=== PATIENT | male | born 1985 | race Caucasian/White ===

== ENCOUNTER 2018-06-25 13:34 | Emergency (ER) | payer MEDICAID ==
[~2018-06-25] VITALS: Ht 185.4 cm; Wt 97.5 kg
[2018-06-25 13:40] VITALS: BP 146/96
--- NOTE | 2018-06-25 13:41 | NUR ---
PT AMBULATED TO BED 2
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
--- NOTE | 2018-06-25 13:55 | NUR ---
PT TAKEN TO X-RAY ON WHEELCHAIR IN STABLE CONDITION
[2018-06-25] MEDS ORDERED: KETOROLAC 60 MG/2 ML VIAL IM ONE (15:45)
[2018-06-25 16:13] VITALS: BP 141/85
== END 2018-06-25 16:13 | disposition home or self-care (01) ==
LOC: MED 13:34
DX: S20.211A Contusion of right front wall of thorax, initial encounter (principal); X58.XXXA Exposure to other specified factors, initial encounter; Y93.89 Activity, other specified; Y92.89 Other specified places as the place of occurrence of the external cause; Y99.8 Other external cause status
CPT/HCPCS: 71101; 99284

== ENCOUNTER 2019-09-03 19:07 | Inpatient (IN) | payer MEDICAID ==
[~2019-09-03] VITALS: Ht 185.4 cm; Wt 113.4 kg
[2019-09-03 19:22] VITALS: BP 155/79
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
--- NOTE | 2019-09-03 19:43 | NUR ---
Dr. Maradiaga examining patient.
[2019-09-03] MEDS ORDERED: NACL 0.9% 3,500 ML IV ONE (19:49)
[2019-09-03] MEDS ORDERED: MORPHINE SULFATE 4 MG/ML SYR IVP ONE ×2 (19:50→20:50)
[2019-09-03] MEDS ORDERED: ONDANSETRON 4 MG/2 ML VIAL IVP ONE (19:50)
--- NOTE | 2019-09-03 19:57 | NUR ---
X-Ray at bedside.
--- NOTE | 2019-09-03 20:19 | NUR ---
ULTRASOUND AT BEDSIDE
--- NOTE | 2019-09-03 20:21 | NUR ---
CONSENT SIGNED FOR CT
[2019-09-03 20:22] LABS: BASOPHILS % (AUTO) 0.6 % (0.0-2.0); EOSINOPHILS # (AUTO) 0.1 K/uL (0-0.4); EOSINOPHILS % (AUTO) 1.1 % (0.0-4.0); HEMATOCRIT 37.4 % (36-52); HEMOGLOBIN 12.4 g/dL (12.0-18.0); LYMPHOCYTES # (AUTO) 2.3 K/uL (2.0-11.5); LYMPHOCYTES % (AUTO) 26.1 % (20.5-51.1); MEAN CORPUSCULAR HEMOGLOBIN 30 pg (27-31); MEAN CORPUSCULAR HGB CONC 33 g/dL (33-37); MEAN CORPUSCULAR VOLUME 89.9 fL (80-94); MONOCYTES # (AUTO) 0.8 K/uL (0.8-1.0); MONOCYTES % (AUTO) 9.2 % (1.7-9.3); NEUTROPHILS # (AUTO) 5.5 K/uL (1.8-7.7); PLATELET COUNT (AUTO) 293 K/uL (140-450); RED BLOOD CELL COUNT(AUTO) 4.16 MIL/uL (4.20-6.10); RED CELL DISTRIBUTION WIDTH 15.8 % (11.6-13.7); WHITE BLOOD COUNT (AUTO) 8.7 K/uL (4.8-10.8)
[2019-09-03 20:31] LABS: ANION GAP 12.9 (8-16); POTASSIUM 3.9 mmol/L (3.5-5.1)
[2019-09-03 20:35] LABS: PROTHROMBIN TIME 9.5 secs (10.8-13.4)
[2019-09-03 20:38] LABS: ALBUMIN 3.7 g/dL (3.4-5.0); TOTAL BILIRUBIN 0.2 mg/dL (0.0-1.0)
[2019-09-03] MEDS ORDERED: NACL 0.9% 1,000 ML IV ONE (20:50)
[2019-09-03 21:01] LABS: APPEARANCE,URINE CLEAR (CLEAR); BILIRUBIN,URINE NEGATIVE (NEGATIVE); BLOOD, URINE NEGATIVE (NEGATIVE); COLOR,URINE YELLOW (YELLOW); LEUKOCYTE ESTERASE ,URINE NEGATIVE (NEGATIVE); NITRITE, URINE NEGATIVE (NEGATIVE); UGLUCOSE NEGATIVE (NEGATIVE)
--- NOTE | 2019-09-03 21:06 | NUR ---
Claire liao in [facility] - 09/03/19 at 2128 by СЕРГЕЙ PT TAKEN TO CT
--- NOTE | 2019-09-03 21:06 | NUR ---
PT TAKEN TO CT
--- NOTE | 2019-09-03 21:27 | NUR ---
PT RETURN FROM CT
[2019-09-03] MEDS ORDERED: KETOROLAC 30 MG/ML VIAL IVP ONE (21:50)
[2019-09-03] MEDS ORDERED: CLINDAMYCIN 600 MG in DEXTROSE 5% 50 ML IV ONE (21:50)
[2019-09-03] MEDS ORDERED: CLINDAMYCIN 600 MG/4 ML VIAL ONE (22:00)
--- NOTE | 2019-09-03 22:30 | NUR ---
PT LAYING IN BED NO SIGNS OF DISTRESS. EVEN UNLABORED BREATHING. FAMILY AT BEDSIDE.
[2019-09-03] MEDS ORDERED: KETOROLAC 15 MG/ML VIAL IVP PRN (23:00)
[2019-09-03] MEDS ORDERED: ZOLPIDEM 5 MG TAB PO PRN (23:00)
[2019-09-03] MEDS ORDERED: ACETAMINOPHEN 325 MG TAB PO PRN (23:00)
[2019-09-03] MEDS ORDERED: DOCUSATE SODIUM 100 MG GELCAP PO PRN (23:00)
[2019-09-03] MEDS ORDERED: MORPHINE SULFATE 2 MG/ML SYR IVP PRN (23:00)
[2019-09-03] MEDS ORDERED: ONDANSETRON 4 MG/2 ML VIAL IM/IVP PRN (23:00)
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
--- NOTE | 2019-09-03 23:20 | NUR ---
Patient will be admitted to care of [facility]. Admited to TELE. Will go to room 111B. Belongings list completed. Report to BOB GIFFORD. FAMILY AT BEDSIDE.
[2019-09-03] MEDS ORDERED: HYDR-5092 PO (23:33)
[2019-09-03] MEDS ORDERED: IBUP-2213 PO (23:33)
[2019-09-03 23:34] LABS: BARBITURATE, URINE NEG. ng/ml (NEG <=200); BENZODIAZEPINE, URINE NEG. ng/mL (NEG <=200); CANNABINOID, URINE POS. ng/mL (NEG <=50); COCAINE, URINE NEG. ng/mL (NEG <=300); OPIATE, URINE POS. ng/mL (NEG <=2000); PHENCYCLIDINE SCREEN,URINE NEG. ng/mL (NEG <=25)
[2019-09-03] MEDS: NACL 0.9% 1,000 ML IV SCH (23:48)
[2019-09-03 23:50] LABS: FREE T4 (FREE THYROXINE) 1.04 ng/dL (0.76-1.46); PHOSPHORUS 4.3 mg/dL (2.5-4.9); THYROID STIMULATING HORMONE 2.69 uIU/mL (0.34-3.74)
[2019-09-03 23:58] VITALS: BP 138/75
[2019-09-04] MEDS ORDERED: APIX5TAB PO (00:04)
--- NOTE | 2019-09-04 02:07 | NUR ---
CHECKED ON PATIENT. PATIENT SLEEPING RESPIRATION EVEN UNLABORED ON ROOM AIR. NO DISTRESS NOTED. CALL LIGHT WITHIN REACH. WILL CONTINUE TO MONITOR.
[2019-09-04 04:00] VITALS: BP 129/88
[2019-09-04] MEDS ORDERED: CLINDAMYCIN 300 MG in DEXTROSE 5% 50 ML IV SCH (04:00)
--- NOTE | 2019-09-04 04:16 | NUR ---
VITALS WERE TAKEN. PATIENT IN STABLE CONDITION. NO DISTRESS NOTED. WILL CONTINUE TO MONITOR.
[2019-09-04] MEDS ORDERED: CLINDAMYCIN 600 MG/4 ML VIAL ONE (04:29)
[2019-09-04] MEDS: CLINDAMYCIN 600 MG in DEXTROSE 5% 50 ML IV SCH ×3 (04:34→20:46)
--- NOTE | 2019-09-04 07:10 | NUR ---
ENDORSED PATIENT TO DAY SHIFT NURSE FOR CONTINUITY OF CARE. PATIENT IN STABLE CONDITION,
--- NOTE | 2019-09-04 07:46 | NUR ---
RECEIVED HAND OFF REPORT FROM PM RN PT APPEARS STABLE AND IN NO APPARENT DISTRESS. ALL SAFETY MEASURES ARE IN PLACE WILL CONTINUE TO MONITOR.
[2019-09-04 08:05] VITALS: BP 129/73
[2019-09-04 08:19] LABS: CHOL/HDL RATIO 3.2 (1-4.5)
[2019-09-04] MEDS ORDERED: ACETAMINOPHEN 325 MG TAB PO PRN (08:20)
[2019-09-04 09:00] LABS: BASOPHILS % (AUTO) 0.5 % (0.0-2.0); EOSINOPHILS # (AUTO) 0.2 K/uL (0-0.4); EOSINOPHILS % (AUTO) 3.3 % (0.0-4.0); HEMATOCRIT 38.1 % (36-52); HEMOGLOBIN 12.4 g/dL (12.0-18.0); LYMPHOCYTES # (AUTO) 1.9 K/uL (2.0-11.5); LYMPHOCYTES % (AUTO) 33.9 % (20.5-51.1); MEAN CORPUSCULAR HEMOGLOBIN 30 pg (27-31); MEAN CORPUSCULAR HGB CONC 33 g/dL (33-37); MEAN CORPUSCULAR VOLUME 90.9 fL (80-94); MONOCYTES # (AUTO) 0.7 K/uL (0.8-1.0); MONOCYTES % (AUTO) 12.3 % (1.7-9.3); NEUTROPHILS # (AUTO) 2.8 K/uL (1.8-7.7); PLATELET COUNT (AUTO) 220 K/uL (140-450); RED BLOOD CELL COUNT(AUTO) 4.19 MIL/uL (4.20-6.10); RED CELL DISTRIBUTION WIDTH 16.2 % (11.6-13.7); WHITE BLOOD COUNT (AUTO) 5.6 K/uL (4.8-10.8)
[2019-09-04 09:09] LABS: ANION GAP 13.9 (8-16); POTASSIUM 3.9 mmol/L (3.5-5.1)
--- NOTE | 2019-09-04 09:46 | NUR ---
FREQUENT ROUNDING ON PT PT APPEARS STABLE AND IN NO APPARENT DISTRESS. ALL SAFETY MEASURES ARE IN PLACE WILL CONTINUE TO MONITOR
[2019-09-04] MEDS: LACTOBACILLUS RHAMNOSUS GG 1 EACH CAP PO SCH (10:06)
--- NOTE | 2019-09-04 11:34 | NUR ---
FREQUENT ROUNDING ON PT PT APPEARS STABLE AND IN NO APPARENT DISTRESS. ALL SAFETY MEASURES ARE IN PLACE WILL CONTINUE TO MONITOR
--- NOTE | 2019-09-04 13:18 | NUR ---
PATIENT HAS BEEN SCREENED AND CATEGORIZED MODERATE NUTRITION RISK. PATIENT WILL BE SEEN WITHIN 3-5 DAYS OF ADMISSION. 09/06/19 - 09/08/19 LINDA SALEH MBA, RD
--- NOTE | 2019-09-04 13:34 | NUR ---
FREQUENT ROUNDING ON PT PT APPEARS STABLE AND IN NO APPARENT DISTRESS. ALL SAFETY MEASURES ARE IN PLACE
--- NOTE | 2019-09-04 15:01 | NUR ---
FREQUENT ROUNDING ON PT PT APPEARS STABLE AND IN NO APPARENT DISTRESS. ALL SAFETY MEASURES ARE IN PLACE WILL CONTINUE TO MONITOR
[2019-09-04] MEDS: NACL 0.9% 1,000 ML IV SCH (16:07)
--- NOTE | 2019-09-04 17:29 | NUR ---
FREQUENT ROUNDING ON PT PT APPEARS STABLE AND IN NO APPARENT DISTRESS. ALL SAFETY MEASURES ARE IN PLACE WILL CONTINUE TO MONITOR
--- NOTE | 2019-09-04 19:15 | NUR ---
RECEIVED REPORT FROM GALLO GIFFORD DAYSHIFT NURSE AT BEDSIDE FOR CONTINUITY OF CARE, PT IN STABLE CONDITION.
--- NOTE | 2019-09-04 19:15 | NUR ---
endorsed pt to pm rn at bedside., pt awake in bed pt appears stable and in no apparent distress. all safety measures are in place ivf infusing no signs of infiltration or inflammation.
[2019-09-04 20:00] VITALS: BP 131/73
[2019-09-04] MEDS: MORPHINE SULFATE 2 MG/ML SYR IVP PRN (20:34)
[2019-09-04] MEDS: APIXABAN 2.5 MG TAB PO SCH (20:44)
--- NOTE | 2019-09-04 20:45 | NUR ---
PT SITTING IN BED AOX4 FINISHING HIS DINNER. PT SATES THAT APPETITE HAS BEEN GOOD. IV SITE ON LEFT AC 20 GUAGE INTACT AND RUNNING NORMAL SALINE AT 60MLS/HR. LOWER LEFT LEG REMAINS MATHEW AND PT STATES 8/10 PAIN IN LOWER LEFT LEG. PT GIVEN MORPHINE IVP/PRN ORDERED FOR SEVERE PAIN. PT ALSO GIVEN SCHEDULED ELIQUIS AND IV ABT CLEOCIN WHICH WAS HUNG AND IS RUNNING AT 100MLS/HR. EDUCATION REGARDING MEDICATION AND CELLULITIS GIVEN AT BEDSIDE TO PT AND FAMILY AT BEDSIDE. PT VERBALIZED UNDERSTANDING. ALL REQUESTED NEEDS ATTENDED AND CALL [place] IN REACH.
[2019-09-05] VITALS: BP 123/65
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
[2019-09-05] MEDS: HYDROcodone/APAP 5/325 MG 1 TAB TAB PO PRN ×3 (00:43→21:12)
[2019-09-05] MEDS: CLINDAMYCIN 600 MG in DEXTROSE 5% 50 ML IV SCH ×3 (05:36→20:25)
[2019-09-05] MEDS: MORPHINE SULFATE 2 MG/ML SYR IVP PRN ×2 (05:43→10:05)
--- NOTE | 2019-09-05 06:00 | NUR ---
PT IN BED CLEOCIN HUNG AND IS RUNNING ORDERED. PT C/O SEVERE PAIN IN LEFT LOWER LEG 8 GIVEN IVP/PRN MORPHINE ORDERED. LAB DRAWS AT BEDSIDE. ALL FALLS PRECAUTIONS IN PLACE.
[2019-09-05 07:18] LABS: ANION GAP 11.8 (8-16); CARBON DIOXIDE 28.1 mmol/L (21-32); POTASSIUM 3.9 mmol/L (3.5-5.1)
[2019-09-05 07:20] LABS: BASOPHILS % (AUTO) 0.7 % (0.0-2.0); EOSINOPHILS # (AUTO) 0.2 K/uL (0-0.4); EOSINOPHILS % (AUTO) 3.1 % (0.0-4.0); HEMATOCRIT 39.8 % (36-52); LYMPHOCYTES # (AUTO) 2.1 K/uL (2.0-11.5); LYMPHOCYTES % (AUTO) 33.2 % (20.5-51.1); MEAN CORPUSCULAR HEMOGLOBIN 30 pg (27-31); MEAN CORPUSCULAR HGB CONC 33 g/dL (33-37); MEAN CORPUSCULAR VOLUME 90.5 fL (80-94); MONOCYTES # (AUTO) 0.8 K/uL (0.8-1.0); MONOCYTES % (AUTO) 12.4 % (1.7-9.3); NEUTROPHILS # (AUTO) 3.1 K/uL (1.8-7.7); NEUTROPHILS % (AUTO) 50.6 % (42.2-75.2); PLATELET COUNT (AUTO) 214 K/uL (140-450); WHITE BLOOD COUNT (AUTO) 6.2 K/uL (4.8-10.8)
--- NOTE | 2019-09-05 07:28 | NUR ---
RECEIVED REPORT FROM MARINE OILER NURSE. PT AAOX4, VSS. PT MENTIONS TOLERABLE 3/10 PAIN LEVEL TO LT LEG, STATES "THE SWELLING HAS DEFINITELY GONE DONE". IV ON LT AC 20 GA RUNNING IVF PER ORDER. RESPIRATIONS EVEN AND UNLABORED ON RA. LBM 09/04, ACTIVE BS, SOFT ABD. PT AMBULATES WITH WALKER. SAFETY MEASURES IN PLACE, BED ON LOW POSITION, CALL LIGHT WITHIN REACH. REVIEWED POC WITH PT, PT VERBALIZED UNDERSTANDING.
[2019-09-05 08:00] VITALS: BP 132/88
[2019-09-05] MEDS: NACL 0.9% 1,000 ML IV SCH ×2 (08:17→13:11)
[2019-09-05] MEDS: ASPIRIN 81 MG TAB.CHEW PO SCH (08:19)
[2019-09-05] MEDS: ATORVASTATIN 20 MG TAB PO SCH (08:19)
[2019-09-05] MEDS: LACTOBACILLUS RHAMNOSUS GG 1 EACH CAP PO SCH (08:19)
[2019-09-05] MEDS: APIXABAN 2.5 MG TAB PO SCH ×2 (08:24→20:21)
--- NOTE | 2019-09-05 08:24 | NUR ---
PT GIVEN MORNING MEDICATIONS, PT IS AWARE OF INDICATIONS AND POTENTIAL SIDE EFFECTS OF MEDICATIONS. NO SIGNS OF DISTRESS AT THIS TIME.
--- NOTE | 2019-09-05 10:05 | NUR ---
PT C/O LEVEL 8/10 PAIN TO LT LEG. ADMINISTERED MORPHINE PER ORDER. WILL REASSESS WITHIN 1 HOUR.
--- NOTE | 2019-09-05 12:40 | NUR ---
ADMINISTERED IV CLEOCIN, PT IS AWARE OF INDICATIONS AND POTENTIAL SIDE EFFECTS. PT GIVEN TORADOL FOR LEVEL 3/10 PAIN TO LT LEG. WILL REASSESS WITHIN 1 HOUR.
--- NOTE | 2019-09-05 13:11 | NUR ---
ADMINISTERED IVF PER ORDER. PT HAS NO SIGNS OF DISTRESS AT THIS TIME.
[2019-09-05 16:00] VITALS: BP 123/78
[2019-09-05] MEDS: MORPHINE SULFATE 4 MG/ML SYR IVP PRN (16:38)
--- NOTE | 2019-09-05 16:38 | NUR ---
ADMINISTERED MORPHINE FOR LEVEL 7/10 PAIN TO LT LEG. WILL REASSESS WITHIN 1 HOUR.
--- NOTE | 2019-09-05 18:38 | NUR ---
PT IS RESTING COMFORTABLY IN BED. RESPIRATIONS EVEN AND UNLABORED ON RA.
--- NOTE | 2019-09-05 19:10 | NUR ---
ENDORSED PT TO CLINICAL NURSING PROFESSOR NURSE. PT HAS NO SIGNS OF DISTRESS AT THIS TIME.
--- NOTE | 2019-09-05 19:10 | NUR ---
RECEIVED ENDORSEMENT FORM DAYSHIFT NURSE AT BEDSIDE CARMELITA FOR CONTINUITY IF CARE, PT IN STABLE CONDITION.
--- NOTE | 2019-09-05 21:30 | NUR ---
PT IN BED ALL FALLS PRECAUTIONS IN PLACE, V/S FOLLOWS T 97.3 P 97 R 18 B/P 116/71 97% ON ROOM AIR. PT C/O 7/10 PAIN IN LEFT LEG, PT GIVEN 1 TAB NORCO PO/PRN . IV SITE 20G AC RUNNING N/S AT 60MLS/HR. ALL REQUESTED NEEDS ATTENDED AND CALL [place] ESTES.
--- NOTE | 2019-09-06 | NUR ---
PT IN BED , HE AMBULATED WITH WALKER TO TOILET AND BACK. V/S FOLLOWS T 97.8 P 98 R 18 B/P 120/80 02 98% ON ROOM AIR. NO C/O VOICED CALL DE LUNA IN REACH. IV SITE INTACT AND RUNNING NS AT 60MLS/HR.
[2019-09-06] MEDS: HYDROcodone/APAP 5/325 MG 1 TAB TAB PO PRN (01:27)
--- NOTE | 2019-09-06 01:30 | NUR ---
PT C/O MODERATE PAIN 6/10 IN LEFT LEG, PT GIVEN 1 TAB OF NORCO PO PRN ORDERED. ALL FALLS PRECAUTIONS IN PLACE.
[2019-09-06 04:00] VITALS: BP 120/80
[2019-09-06] MEDS: CLINDAMYCIN 600 MG in DEXTROSE 5% 50 ML IV SCH (04:55)
--- NOTE | 2019-09-06 05:05 | NUR ---
PT IN BED SLEEPING NO S/S OF PAIN OR DISTRESS NOTED, IV ABT CLEOCIN HUNG AND UIS RUNNING AT 100MLS HR. ALL FALLS PRECAUTIONS IN PLACE AND LOWER EXTREMITIES ELEVATED.
--- NOTE | 2019-09-06 07:10 | NUR ---
RECEIVED REPORT FORM PROCESS CHECKER NURSE. PT AAOX4, NO C/O PAIN AT THIS TIME, VSS. IV ON LT AC 20 GA RUNNING IVF PER ORDER. LBM 09/05, ACTIVE BS, SOFT ABD. PT'S DX LT LEG CELLULITIS, REDNESS TO LT LEG, SKIN IS INTACT, WARM TO TOUCH. PT IS ON FALL RISK PRECAUTIONS, SAFETY MEASURES IN PLACE, CALL LIGHT WITHIN REACH. REVIEWED POC WITH PT, PT VERBALIZED UNDERSTANDING.
[2019-09-06 08:00] VITALS: BP 138/76
[2019-09-06 08:05] LABS: BASOPHILS % (AUTO) 0.6 % (0.0-2.0); EOSINOPHILS # (AUTO) 0.3 K/uL (0-0.4); EOSINOPHILS % (AUTO) 5.1 % (0.0-4.0); HEMATOCRIT 40.6 % (36-52); HEMOGLOBIN 13.5 g/dL (12.0-18.0); LYMPHOCYTES # (AUTO) 2.2 K/uL (2.0-11.5); LYMPHOCYTES % (AUTO) 37.9 % (20.5-51.1); MEAN CORPUSCULAR HEMOGLOBIN 30 pg (27-31); MEAN CORPUSCULAR HGB CONC 33 g/dL (33-37); MEAN CORPUSCULAR VOLUME 90.6 fL (80-94); MONOCYTES # (AUTO) 0.6 K/uL (0.8-1.0); NEUTROPHILS # (AUTO) 2.6 K/uL (1.8-7.7); NEUTROPHILS % (AUTO) 46.4 % (42.2-75.2); PLATELET COUNT (AUTO) 256 K/uL (140-450); RED BLOOD CELL COUNT(AUTO) 4.49 MIL/uL (4.20-6.10); RED CELL DISTRIBUTION WIDTH 15.9 % (11.6-13.7); WHITE BLOOD COUNT (AUTO) 5.7 K/uL (4.8-10.8)
[2019-09-06 08:34] LABS: PHOSPHORUS 4.6 mg/dL (2.5-4.9)
[2019-09-06 08:38] LABS: CARBON DIOXIDE 26.8 mmol/L (21-32); POTASSIUM 3.8 mmol/L (3.5-5.1)
[2019-09-06] MEDS: ASPIRIN 81 MG TAB.CHEW PO SCH (08:50)
[2019-09-06] MEDS: ATORVASTATIN 20 MG TAB PO SCH (08:50)
[2019-09-06] MEDS: LACTOBACILLUS RHAMNOSUS GG 1 EACH CAP PO SCH (08:50)
[2019-09-06] MEDS: MORPHINE SULFATE 4 MG/ML SYR IVP PRN (08:51)
[2019-09-06] MEDS: APIXABAN 2.5 MG TAB PO SCH (08:57)
--- NOTE | 2019-09-06 08:57 | NUR ---
ADMINISTERED MORNING MEDICATIONS PER ORDER, PT IS AWARE OF INDICATIONS AND POTENTIAL SIDE EFFECTS. GIVEN MORPHINE FOR LEVEL 7/10 PAIN TO RT LEG. WILL REASSESS WITHIN 1 HOUR.
[2019-09-06] MEDS ORDERED: LACT10CA1 PO (09:39)
[2019-09-06] MEDS ORDERED: CLIN300C2 PO (09:39)
[2019-09-06] MEDS ORDERED: ATOR20TA PO (09:48)
--- NOTE | 2019-09-06 10:05 | NUR ---
PT WALKING WITH ASSISTIVE DEVICE WITH PHYSICAL THERAPIST/ROBB. PT IS TOLERATING WELL. PT IS AWARE THAT HE WILL BE DISCHARGED TODAY.
[2019-09-06] MEDS ORDERED: APIX5TAB PO (10:21)
--- NOTE | 2019-09-06 11:25 | NUR ---
PT HAS BEEN DISCHARGED. ALL PAPERWORK SINGED, ALL QUESTIONS ANSWERED. ALL BELONGINGS AND PRESCRIPTION IN PT POSSESSION. IV DISCONTINUED WITH CANNULA INTACT. WRISTBANDS REMOVED. PT REFUSED WHEELCHAIR, AMBULATED OUT OF UNIT WITH WALKER, FRIEND AT SIDE. PT IS STABLE CONDITION.
== END 2019-09-06 11:25 | disposition home or self-care (01) | DRG 720 ==
LOC: MED 19:07 → MTU 22:57
PROVIDERS: ADMIT Family Medicine; ATTEND Family Medicine
DX: A41.9 Sepsis, unspecified organism (principal); I82.502 Chronic embolism and thrombosis of unspecified deep veins of left lower extremity; L03.116 Cellulitis of left lower limb; F19.10 Other psychoactive substance abuse, uncomplicated; I10 Essential (primary) hypertension; E78.5 Hyperlipidemia, unspecified; Z79.01 Long term (current) use of anticoagulants
CPT/HCPCS: 36415; 71045; 71275; 73590; 73630; 80048; 80053; 80305; 81003; 82150; 82553; 83036; 83605; 83690; 83735; 83880; 84100; 84134; 84439; 84443; 84484; 85025; 85610; 85730; 87040; 87081; 87086; 93005; 93925; 93971; 96361; 96365; 96375; 96376; 97116; 97161-GP; 97530; 99285; J1885; J2270; J2405; J3490; J7030; J7060; Q0092; Q9967